=== PATIENT | female | born 1975 | race Caucasian/White ===

== ENCOUNTER 2022-10-09 09:58 | Emergency (ER) | payer OTHER, MEDICAID, SELFPAY ==
[2022-10-09] VITALS (17 sets, daily range): BP systolic 97–160; BP diastolic 52–89; PULSE 85–98; RESP 18; TEMP 36.2–37.2; O2SAT 93–100; BMI 25.0
--- NOTE | 2022-10-09 10:56 | PC.NURSE ---
pt continues to refuse iv attempt
[2022-10-09] MEDS: ONDANSETRON 4 MG ODT PO (10:59)
--- NOTE | 2022-10-09 11:25 | ED.NAVMDI ---
HPI - Nausea/Vomiting/Diarrhea General Chief complaint: Nausea/Vomiting/Diarrhea Stated complaint: vomiting, diarrhea Time Seen by Provider: 10/09/22 11:25 Source: patient Mode of arrival: Ambulatory Limitations: no limitations History of Present Illness HPI Narrative: This is a 46-year-old female who is insulin-dependent diabetic, on Lantus and Humulin, she also receives methadone at the local clinic and travels back and forth from [place] daily to receive her dose. Patient presents with complaint of vomiting via EMS. Glucose was high for them in the field. Patient arrived at the clinic, went straight to the bathroom was vomiting and never received her dose of methadone. She does not recall giving herself her own insulin but her significant other at bedside states that she gave herself her long-acting in a friend's car before they went to [facility]. Patient had hash browns and maybe some additional food at [facility] and then shortly thereafter started vomiting. They state that her glucoses have been reading high the last several days. Patient is not on any other daily medications. No reported fevers or chills, no cold cough or congestion. No chest pain or shortness of breath. Denies nausea or vomiting before today. Denies diarrhea or constipation before today denies dysuria urgency or frequency. Patient can converse with me but falls asleep easily. She has refused labs, IV or workup or any evaluation including respiratory swab multiple times with nursing when I evaluated her we discussed and she allowed for attempted IV access and blood work but persist in refusing nasal swab. They asked for her to receive her methadone dose but based on the level of sleepiness discussed that I am not comfortable with that at this time. No reported surgeries. Related Data Previous Rx's Medication Instructions Recorded cephalexin 500 mg capsule 500 mg PO Q12H #10 caps 10/09/22 lancets (Lancets,Ultra Thin) #100 ea 10/09/22 levothyroxine 75 mcg tablet 75 mcg PO DAILY #30 tabs 10/09/22 (Synthroid) ondansetron 4 mg disintegrating 4 mg PO QID PRN nausea and 10/09/22 tablet vomiting #5 tabs pen needle, diabetic 31 gauge x #100 ea 10/09/2210/21 (Lite Touch Insulin Pen [place]) Review of Systems Review of Systems ROS Unobtainable: All systems reviewed & are unremarkable except as noted in HPI and below Exam Narrative Exam Narrative: GEN: well nourished, female, alert and oriented but sleepy, with verbal stimuli patient will awakened answer questions but falls asleep easily, patient appears to be in mild distress. HEENT: Atraumatic, pupils are equal round reactive to light, extraocular movements are intact, nares are clear, there is no conjunctival pallor. Throat is clear without any exudates, erythema, tonsillar enlargement or uvular deviation HEART: Regular rate and rhythm without murmur, clicks, rubs. pulses are equal in upper and lower extremities patient does have 2+ edema bilateral lower extremities improved below the sock line. LUNGS:Lungs clear to auscultation, no wheezes, rales, crackles, chest moves symmetrically ABD:bowel sounds normal, soft, non-tender, no guarding, rebound, rigidity, no masses noted, no hepatosplenomegaly :No CVA tenderness MSCL: Non-tender, no muscle atrophy, muscles strength 5/5 upper and lower extremities, full range of motion NEURO:CN 2-12 intact, sensation normal, GCS 15 SKIN: Patient has some erythema at her sock line and extending above the the shins bilaterally lower pretibial area. No skin breakdown or open wounds noted. Initial Vital Signs Initial Vital Signs: Vital Signs Temperature 97.1 F L 10/09/22 10:03 Pulse Rate 94 H 10/09/22 10:03 Respiratory Rate 18 10/09/22 10:03 Blood Pressure 160/89 H 10/09/22 10:03 Pulse Oximetry 98 10/09/22 10:03 Oxygen Delivery Method 10/09/22 10:03 Course Orders Ordered: Discontinued Medications Sodium Chloride (Normal Saline 0.9%) 1,000 mls @ 1,000 mls/hr IV BOLUS ONE Stop: 10/09/22 12:37 Last Infusion: 10/09/22 13:48 Dose: 0 mls/hr Documented By: Admin: 10/09/22 12:25 Dose: 1,000 mls/hr Documented By: CONRADO Sodium Chloride (Normal Saline 0.9%) 1,000 mls @ 1,000 mls/hr IV BOLUS ONE Stop: 10/09/22 14:05 Last Infusion: 10/09/22 14:45 Dose: 0 mls/hr Documented By: Admin: 10/09/22 13:16 Dose: 1,000 mls/hr Documented By: CONRADO Ceftriaxone Sodium 1,000 mg/ (Sodium Chloride) 100 mls @ 200 mls/hr IV NOW ONE Stop: 10/09/22 13:33 Last Infusion: 10/09/22 14:09 Dose: 0 mls/hr Documented By: Admin: 10/09/22 13:36 Dose: 200 mls/hr Documented By: CONRADO Insulin Human Regular (Insulin Regular 100 Unit/Ml 3 Ml Vial) 10 unit IV NOW ONE Stop: 10/09/22 13:12 Last Admin: 10/09/22 13:15 Dose: 10 unit Documented By: CONRADO Co-signed By: AT Ondansetron HCl (Ondansetron 4 Mg Odt) 4 mg PO NOW PRN PRN Reason: Nausea And Vomiting Last Admin: 10/09/22 10:59 Dose: 4 mg Documented By: CONRADO(2) Ondansetron HCl (Ondansetron 4 Mg/2 Ml Inj) 4 mg IV NOW PRN PRN Reason: Nausea And Vomiting Last Admin: 10/09/22 13:15 Dose: 4 mg Documented By: CONRADO Vital Signs Vital signs: Vital Signs - 8 hr 10/09/22 10:03 10/09/22 10:05 10/09/22 10:05 Temperature 97.1 F L 97.1 F L Pulse Rate 94 H 95 H Respiratory Rate 18 Blood Pressure 160/89 H 160/89 H Pulse Oximetry 98 97 Oxygen Delivery Method Room Air 10/09/22 10:30 10/09/22 11:00 10/09/22 11:30 Temperature Pulse Rate 98 H 95 H 90 Respiratory Rate 18 Blood Pressure Pulse Oximetry 99 98 98 Oxygen Delivery Method 10/09/22 11:44 10/09/22 11:44 10/09/22 12:00 Temperature 99 F Pulse Rate 88 85 Respiratory Rate Blood Pressure 108/57 L Pulse Oximetry 96 99 Oxygen Delivery Method 10/09/22 12:01 10/09/22 12:01 10/09/22 12:30 Temperature Pulse Rate 85 Respiratory Rate Blood Pressure 106/63 101/66 Pulse Oximetry 100 Oxygen Delivery Method 10/09/22 12:30 10/09/22 13:00 10/09/22 13:30 Temperature Pulse Rate 91 H 85 91 H Respiratory Rate 18 Blood Pressure Pulse Oximetry 98 94 96 Oxygen Delivery Method 10/09/22 13:50 10/09/22 13:47 10/09/22 13:48 Temperature Pulse Rate 93 H 95 H Respiratory Rate Blood Pressure 97/54 L Pulse Oximetry 97 97 Oxygen Delivery Method 10/09/22 13:48 10/09/22 14:00 10/09/22 14:30 Temperature Pulse Rate 92 H 90 Respiratory Rate Blood Pressure 97/54 L Pulse Oximetry 97 93 Oxygen Delivery Method 10/09/22 14:35 10/09/22 14:35 Temperature Pulse Rate 91 H Respiratory Rate Blood Pressure 98/52 L Pulse Oximetry 93 Oxygen Delivery Method MDM - Nausea/Vomiting/Diarrhea Lab Data Result diagrams: 10/09/22 12:20 10/09/22 12:20 Labs: Lab Results 10/09/22 10/09/22 10/09/22 Range/Units 12:20 12:20 12:20 WBC 7.1 (4.5-11.0) X10^3/uL RBC 4.42 (4.0-5.2) X10^6/uL Hgb 13.4 (12.0-16.0) g/dL Hct 40.3 (36-46) % MCV 91.1 (80-100) fL MCH 30.4 (26-34) PG MCHC 33.4 (30-36) % RDW 13.8 (11.6-14.8) % Plt Count 303 (150-400) X10^3/uL Neut % (Auto) 76.0 H (50-75) % Lymph % (Auto) 14.3 L (25-40) % [place] % (Auto) 7.1 (3-14) % Eos % (Auto) 2.0 (2-4) % Baso % (Auto) 0.6 (0-2) % Neut # (Auto) 5400 (4333-9583) /uL Lymph # (Auto) 1000 L (8721-6500) /uL [place] # (Auto) 500 (0-900) /uL Eos # (Auto) 100 (0-450) /uL Baso # (Auto) 0 (0-100) /uL VBG pH (7.33-7.43) VBG pCO2 (45-50) mmHg VBG pO2 (35-45) mmHg VBG HCO3 (23-28) mmol/L VBG Total CO2 (24-29) mmol/L VBG O2 Saturation (70-75) % VBG Base Excess (0-4) mmol/L Sodium 134 L (137-145) mmol/L Potassium 3.8 (3.4-5.1) mmol/L Chloride 93 L (98-107) mmol/L Carbon Dioxide 31 (22-32) mmol/L BUN 16 (7-17) mg/dL Creatinine 0.71 (0.52-1.04) mg/dL Estimated GFR > 60 (>60) mL/min BUN/Creatinine Ratio 22.5 H (6-22) Glucose 483 H (70-100) mg/dL Lactate (0.7-2.1) mmol/L Calcium 8.6 (8.4-10.2) mg/dL Phosphorus 3.5 (2.5-4.5) mg/dL Magnesium 2.1 (1.6-2.3) mg/dL Total Bilirubin 0.5 (0.2-1.3) mg/dL AST 43 H (14-36) IU/L ALT 66 H (<35) IU/L Alkaline Phosphatase 130 H (38-126) U/L Total Creatine Kinase 125 (30-135) U/L CK-MB (CK-2) 3.13 H (<2.37) ng/mL CK-MB (CK-2) Rel Index 2.5 (1.5-5.0) % Troponin I < 0.012 (0.01-0.034) ng/mL NT-Pro-B Natriuret Pep 77 (<125) pg/mL Total Protein 7.0 (6.3-8.2) g/dL Albumin 3.7 (3.5-5.0) g/dL Globulin 3.3 (1.7-4.1) g/dL Albumin/Globulin Ratio 1.1 (1.0-2.8) Lipase 30 (23-300) U/L Procalcitonin 0.05 (<0.5) ng/mL Serum , Qual (Negative) Urine Color Urine Appearance Urine pH (4.5-8.0) Ur Specific [place] (1.000-1.035) Urine Protein (Negative) Urine Glucose (UA) (Negative) g/dL Urine Ketones (NEGATIVE) Urine Occult Blood (Negative) Urine Nitrate (Negative) Urine Bilirubin (NEGATIVE) Urine Urobilinogen (0.2) E.U./dL Ur Leukocyte Esterase (NEGATIVE) Urine RBC (0-5/HPF) Urine WBC (0-5/HPF) Ur Squamous Epith Cells (0-5/HPF) Amorphous Sediment Urine Bacteria (None) Ur Culture Indicated? U Opiates 300ng/mL cut (Negative) Ur Oxycodone Screen (Negative) Urine Methadone Screen (Negative) Ur Barbiturates Screen (Negative) U Tricyclic Antidepress (Negative) Ur Phencyclidine Scrn (Negative) Ur Amphetamines Screen (Negative) U Methamphetamines Scrn (Negative) Ur MDMA Scrn (Ecstasy) (Negative) U Benzodiazepines Scrn (Negative) Urine Cocaine Screen (Negative) U Marijuana (THC) Screen (Negative) 10/09/22 10/09/22 10/09/22 Range/Units 12:20 12:20 12:20 WBC (4.5-11.0) X10^3/uL RBC (4.0-5.2) X10^6/uL Hgb (12.0-16.0) g/dL Hct (36-46) % MCV (80-100) fL MCH (26-34) PG MCHC (30-36) % RDW (11.6-14.8) % Plt Count (150-400) X10^3/uL Neut % (Auto) (50-75) % Lymph % (Auto) (25-40) % [place] % (Auto) (3-14) % Eos % (Auto) (2-4) % Baso % (Auto) (0-2) % Neut # (Auto) (8418-4578) /uL Lymph # (Auto) (9578-3206) /uL [place] # (Auto) (0-900) /uL Eos # (Auto) (0-450) /uL Baso # (Auto) (0-100) /uL VBG pH (7.33-7.43) VBG pCO2 (45-50) mmHg VBG pO2 (35-45) mmHg VBG HCO3 (23-28) mmol/L VBG Total CO2 (24-29) mmol/L VBG O2 Saturation (70-75) % VBG Base Excess (0-4) mmol/L Sodium (137-145) mmol/L Potassium (3.4-5.1) mmol/L Chloride (98-107) mmol/L Carbon Dioxide (22-32) mmol/L BUN (7-17) mg/dL Creatinine (0.52-1.04) mg/dL Estimated GFR (>60) mL/min BUN/Creatinine Ratio (6-22) Glucose (70-100) mg/dL Lactate 1.9 (0.7-2.1) mmol/L Calcium (8.4-10.2) mg/dL Phosphorus (2.5-4.5) mg/dL Magnesium (1.6-2.3) mg/dL Total Bilirubin (0.2-1.3) mg/dL AST (14-36) IU/L ALT (<35) IU/L Alkaline Phosphatase (38-126) U/L Total Creatine Kinase (30-135) U/L CK-MB (CK-2) (<2.37) ng/mL CK-MB (CK-2) Rel Index (1.5-5.0) % Troponin I (0.01-0.034) ng/mL NT-Pro-B Natriuret Pep (<125) pg/mL Total Protein (6.3-8.2) g/dL Albumin (3.5-5.0) g/dL Globulin (1.7-4.1) g/dL Albumin/Globulin Ratio (1.0-2.8) Lipase Cancelled (23-300) U/L Procalcitonin (<0.5) ng/mL Serum , Qual Negative (Negative) Urine Color Urine Appearance Urine pH (4.5-8.0) Ur Specific [place] (1.000-1.035) Urine Protein (Negative) Urine Glucose (UA) (Negative) g/dL Urine Ketones (NEGATIVE) Urine Occult Blood (Negative) Urine Nitrate (Negative) Urine Bilirubin (NEGATIVE) Urine Urobilinogen (0.2) E.U./dL Ur Leukocyte Esterase (NEGATIVE) Urine RBC (0-5/HPF) Urine WBC (0-5/HPF) Ur Squamous Epith Cells (0-5/HPF) Amorphous Sediment Urine Bacteria (None) Ur Culture Indicated? U Opiates 300ng/mL cut (Negative) Ur Oxycodone Screen (Negative) Urine Methadone Screen (Negative) Ur Barbiturates Screen (Negative) U Tricyclic Antidepress (Negative) Ur Phencyclidine Scrn (Negative) Ur Amphetamines Screen (Negative) U Methamphetamines Scrn (Negative) Ur MDMA Scrn (Ecstasy) (Negative) U Benzodiazepines Scrn (Negative) Urine Cocaine Screen (Negative) U Marijuana (THC) Screen (Negative) 10/09/22 10/09/22 10/09/22 Range/Units 12:29 12:58 12:58 WBC (4.5-11.0) X10^3/uL RBC (4.0-5.2) X10^6/uL Hgb (12.0-16.0) g/dL Hct (36-46) % MCV (80-100) fL MCH (26-34) PG MCHC (30-36) % RDW (11.6-14.8) % Plt Count (150-400) X10^3/uL Neut % (Auto) (50-75) % Lymph % (Auto) (25-40) % [place] % (Auto) (3-14) % Eos % (Auto) (2-4) % Baso % (Auto) (0-2) % Neut # (Auto) (7244-2839) /uL Lymph # (Auto) (6289-4273) /uL [place] # (Auto) (0-900) /uL Eos # (Auto) (0-450) /uL Baso # (Auto) (0-100) /uL VBG pH 7.34 (7.33-7.43) VBG pCO2 59.6 H (45-50) mmHg VBG pO2 31 L (35-45) mmHg VBG HCO3 32 H (23-28) mmol/L VBG Total CO2 34 H (24-29) mmol/L VBG O2 Saturation 55 L (70-75) % VBG Base Excess 6.0 H (0-4) mmol/L Sodium (137-145) mmol/L Potassium (3.4-5.1) mmol/L Chloride (98-107) mmol/L Carbon Dioxide (22-32) mmol/L BUN (7-17) mg/dL Creatinine (0.52-1.04) mg/dL Estimated GFR (>60) mL/min BUN/Creatinine Ratio (6-22) Glucose (70-100) mg/dL Lactate (0.7-2.1) mmol/L Calcium (8.4-10.2) mg/dL Phosphorus (2.5-4.5) mg/dL Magnesium (1.6-2.3) mg/dL Total Bilirubin (0.2-1.3) mg/dL AST (14-36) IU/L ALT (<35) IU/L Alkaline Phosphatase (38-126) U/L Total Creatine Kinase (30-135) U/L CK-MB (CK-2) (<2.37) ng/mL CK-MB (CK-2) Rel Index (1.5-5.0) % Troponin I (0.01-0.034) ng/mL NT-Pro-B Natriuret Pep (<125) pg/mL Total Protein (6.3-8.2) g/dL Albumin (3.5-5.0) g/dL Globulin (1.7-4.1) g/dL Albumin/Globulin Ratio (1.0-2.8) Lipase (23-300) U/L Procalcitonin (<0.5) ng/mL Serum , Qual (Negative) Urine Color Yellow Urine Appearance Clear Urine pH 5.0 (4.5-8.0) Ur Specific [place] <=1.005 (1.000-1.035) Urine Protein Negative (Negative) Urine Glucose (UA) 2+ H (Negative) g/dL Urine Ketones Negative (NEGATIVE) Urine Occult Blood Negative (Negative) Urine Nitrate Negative (Negative) Urine Bilirubin Negative (NEGATIVE) Urine Urobilinogen 0.2 (0.2) E.U./dL Ur Leukocyte Esterase Negative (NEGATIVE) Urine RBC None seen (0-5/HPF) Urine WBC 1-5/hpf (0-5/HPF) Ur Squamous Epith Cells 1-5 /hpf (0-5/HPF) Amorphous Sediment 1+ Urine Bacteria Many (>30) H (None) Ur Culture Indicated? Specimen cultured U Opiates 300ng/mL cut Positive H (Negative) Ur Oxycodone Screen Negative (Negative) Urine Methadone Screen Positive H (Negative) Ur Barbiturates Screen Negative (Negative) U Tricyclic Antidepress Negative (Negative) Ur Phencyclidine Scrn Negative (Negative) Ur Amphetamines Screen Negative (Negative) U Methamphetamines Scrn Positive H (Negative) Ur MDMA Scrn (Ecstasy) Negative (Negative) U Benzodiazepines Scrn Negative (Negative) Urine Cocaine Screen Negative (Negative) U Marijuana (THC) Screen Negative (Negative) Point of Care Testing Glucose POC 150 Imaging Data Chest x-ray: Radiologist's Impression: Close Chest X-Ray (Signed) Brandan Hicks - 10/09/22 Launch?[address] [address] XRay Report Signed Patient: Laurie Hercules MR#: [id number] : 1975 Acct:[id number] Age/Sex: 46 / F Date of Service: 10/09/22 Loc: ED Accession Number: [id number] ?? Procedure: XR chest 1V Ordering Provider: Brittany Blunt D.O. PROCEDURE:? XR CHEST 1V ? INDICATIONS:? v/d, high blood sugars, swelling legs. ? TECHNIQUE:? One view of the chest was acquired.? ? COMPARISON:? None. ? FINDINGS:? ? Surgical changes and devices:? Postsurgical changes are noted in visualized lower cervical spine. ? Lungs and pleura:? Lungs are clear.? No pleural effusions or pneumothorax.? ? Mediastinum:? Mediastinal contours appear normal.? Heart size is normal.? ? Bones and chest wall:? No suspicious bony lesions.? Overlying soft tissues appear unremarkable.? ? IMPRESSION:? No acute cardiopulmonary pathology. ? ? Dictated by: Brandan Hicks M.D. on 10/09/2022 at 12:06 ? ? Approved by: Brandan Hicks M.D. on 10/09/2022 at 12:08?? ECG Data Interpretation: patient refused EKG. [facility] Narrative Medical decision making narrative: Patient with nausea and vomiting they suspect food poisoning discussed with patient she needs workup she refused EKG and nasal swab refused initially labs and additional workup but after discussed that with her hyperglycemia she can be in DKA and that can kill her she allowed for IV and lab work. Patient eventually allowed for line, had to have ultrasound guided placed line and has hyperglycemia no DKA. She has bacteria but no other signs of infection but will be covered with an antibiotic she has had [facility] before [facility] but [facility] Glucose improved from 400 range to 160 after 2 L of fluid and 10 units of insulin. Patient states she has plenty of it is she does request prescription refill for Synthroid, lancets and needles for insulin pen and sent with prescription for Keflex as well as Zofran. Patient did show urine that shows possible infection so will treat for possible UTI that may be exacerbating her sugars. She has improved her glucose in the department after fluids much more appropriate. Patient did ambulate to the bathroom here in the department after I saw her. She has not been having persistent vomiting. She stated to nursing that the methadone clinic had given her medications for the holiday weekend and she is happy and requesting to be discharged, they have already arranged transportation Discharge Plan Departure Patient Disposition: Home Clinical Impression: Hyperglycemia, UTI (urinary tract infection) Activity Restrictions/Additional Instructions: I hope you continue to feel better. You have bacteria in your urine but no other signs of infection, you have been given a dose of IV antibiotics and a prescription to continue, take Keflex 1 tablet twice daily for 5 days total. Your glucose is quite elevated today but you all of your other labs are appropriate. Prescription for your Synthroid, lancets and needles were sent to [facility] pharmacy on [address] in [place]. There is also a prescription for Zofran and antinausea medication included, he can take 1 tablet every 6 hours as needed. Please continue to monitor your sugars if they are still quite elevated you should be re-evaluated. Please return for fevers persistent vomiting, new or worsening abdominal back or flank pain, black or bloody stools, passing out or other new or concerning changes. Prescriptions: New levothyroxine [Synthroid] 75 mcg tablet 75 mcg PO DAILY Qty: 30 0RF (DME) lancets [Lancets,Ultra Thin] Misc See Rx Instructions .Route Qty: 100 0RF Rx Instructions: As directed (DME) pen needle, diabetic [Lite Touch Insulin Pen [place]] 31 gauge x 1/4 needle See Rx Instructions .Route Qty: 100 0RF Rx Instructions: As directed ondansetron 4 mg tablet,disintegrating 4 mg PO QID PRN (Reason: nausea and vomiting) Qty: 5 0RF cephalexin 500 mg capsule 500 mg PO Q12H Qty: 10 0RF Referrals: Miscellaneous,Doctor, MD [Primary Care Provider] - Visit Report Forms: Patient Portal/API
--- NOTE | 2022-10-09 11:38 | DI.RAD.S_ITS ---
PROCEDURE: XR CHEST 1V INDICATIONS: v/d, high blood sugars, swelling legs. TECHNIQUE: One view of the chest was acquired. COMPARISON: None. FINDINGS: Surgical changes and devices: Postsurgical changes are noted in visualized lower cervical spine. Lungs and pleura: Lungs are clear. No pleural effusions or pneumothorax. Mediastinum: Mediastinal contours appear normal. Heart size is normal. Bones and chest wall: No suspicious bony lesions. Overlying soft tissues appear unremarkable. IMPRESSION: No acute cardiopulmonary pathology. Dictated by: Brandan Hicks M.D. on 10/09/2022 at 12:06 Approved by: Brandan Hicks M.D. on 10/09/2022 at 12:08
--- NOTE | 2022-10-09 11:53 | PC.NURSE ---
piv attempt x 1 unsuccesful. called di rn for line with ultrasound
--- NOTE | 2022-10-09 11:56 | PC.NURSE ---
pt refuses resp arnp swab pt states no, you're not shoving that swab up my fucking nose
[2022-10-09] MEDS: SODIUM CHLORIDE 0.9% 1,000 ML 1000 ML IV ×2 (12:25→13:16)
[2022-10-09 12:33] LABS: Add Manual Diff / Slide Review NO; Basophils Absolute Auto 0 /uL (0-100); Basophils Percent Auto 0.6 % (0-2); Eosinophils Absolute Auto 100 /uL (0-450); Hematocrit 40.3 % (36-46); Hemoglobin 13.4 g/dL (12.0-16.0); Lymphocytes Absolute Auto 1000 /uL (1100-4500); Lymphocytes Percent Auto 14.3 % (25-40); Mean Corpuscular HGB Conc 33.4 % (30-36); Mean Corpuscular Hemoglobin 30.4 PG (26-34); Mean Corpuscular Volume 91.1 fL (80-100); Monocytes Absolute Auto 500 /uL (0-900); Monocytes Percent Auto 7.1 % (3-14); Neutrophils Absolute Auto 5400 /uL (1500-7000); Platelet Count 303 X10^3/uL (150-400); Red Blood Cell Count 4.42 X10^6/uL (4.0-5.2); Red Cell Distribution Width 13.8 % (11.6-14.8); White Blood Cell Count 7.1 X10^3/uL (4.5-11.0)
--- NOTE | 2022-10-09 12:40 | PC.NURSE ---
pt could not sit down or lay down right for ekg
[2022-10-09 12:46] LABS: Pregnancy Test Serum,Qual Negative (Negative)
[2022-10-09 12:49] LABS: Alanine Aminotransferase 66 IU/L (<35); Albumin 3.7 g/dL (3.5-5.0); Albumin Globulin Ratio 1.1 (1.0-2.8); Alkaline Phosphatase 130 U/L (38-126); Aspartate Aminotransferase 43 IU/L (14-36); BUN Creatinine Ratio 22.5 (6-22); Bilirubin Total 0.5 mg/dL (0.2-1.3); Blood Urea Nitrogen 16 mg/dL (7-17); Calcium 8.6 mg/dL (8.4-10.2); Carbon Dioxide 31 mmol/L (22-32); Chloride 93 mmol/L (98-107); Estimated Glomerular Filt Rate > 60 mL/min (>60); Globulin 3.3 g/dL (1.7-4.1); HEMOLYSIS < 15 (0-50); Lipase 30 U/L (23-300); Potassium 3.8 mmol/L (3.4-5.1); Sodium 134 mmol/L (137-145)
[2022-10-09 12:50] LABS: Creatine Kinase 125 U/L (30-135); Lactate (Lactic Acid) 1.9 mmol/L (0.7-2.1); Magnesium 2.1 mg/dL (1.6-2.3); Phosphorous 3.5 mg/dL (2.5-4.5)
[2022-10-09 12:58] LABS: Glucose 483 mg/dL (70-100)
[2022-10-09 13:01] LABS: NT-proBNP (BNP-Adult 18+) 77 pg/mL (<125); Troponin I < 0.012 ng/mL (0.01-0.034)
[2022-10-09 13:05] LABS: CKMB % Relative Index 2.5 % (1.5-5.0); Creatine Kinase MB 3.13 ng/mL (<2.37)
--- NOTE | 2022-10-09 13:05 | PC.NURSE ---
collected second set of blood cx from us iv, unable to obtain other line or blood.
[2022-10-09 13:06] LABS: Procalcitonin 0.05 ng/mL (<0.5)
[2022-10-09 13:14] LABS: Appearance Urine UA CLEAR; Bilirubin Urine UA NEGATIVE (NEGATIVE); Color Urine UA YELLOW; Glucose Urine UA 2+ g/dL (Negative); Ketones Urine UA NEGATIVE (NEGATIVE); Leukocyte Esterase Urine UA NEGATIVE (NEGATIVE); Nitrite Urine UA NEGATIVE (Negative); Occult Blood Urine UA NEGATIVE (Negative); Protein Urine UA NEGATIVE (Negative); Specific Gravity Urine UA <=1.005 (1.000-1.035); Urobilinogen Urine UA 0.2 E.U./dL (0.2)
[2022-10-09] MEDS: ONDANSETRON 4 MG/2 ML INJ IV (13:15)
[2022-10-09] MEDS: INSULIN REGULAR 100 UNIT/ML 3 ML VIAL 10 UNIT IV (13:15)
[2022-10-09 13:29] LABS: Amorphous Sediment Urine 1+; Bacteria Urine Many (>30); Culture Indicated Urine Specimen Cultured; RBC Urine None Seen (0-5/HPF); Squamous Epithelial Cell Urine 1-5 /HPF (0-5/HPF); WBC Urine 1-5/HPF (0-5/HPF)
[2022-10-09 13:30] LABS: HCO3 VBG 32 mmol/L (23-28); Oxygen Saturation VBG 55 % (70-75); PCO2 VBG 59.6 mmHg (45-50); PO2 VBG 31 mmHg (35-45); Total CO2 VBG 34 mmol/L (24-29); pH VBG 7.34 (7.33-7.43)
[2022-10-09 13:35] LABS: Ur Creatinine Normal (Normal); Ur Specific Gravity Normal (Normal); Urine Tetrahydrocannabinol Negative (Negative); Urine pH Normal (Normal)
[2022-10-09 13:36] LABS: UR Morphine/Opiate cutoff 300 Positive (Negative); Urine Amphetamines Negative (Negative); Urine Barbiturates Negative (Negative); Urine Benzodiazepines Negative (Negative); Urine Cocaine Negative (Negative); Urine MDMA Negative (Negative); Urine Methamphetamines Positive (Negative); Urine Phencyclidine Negative (Negative)
[2022-10-09] MEDS: cefTRIAXone 1,000 MG in SODIUM CHLORIDE 0.9% 100 ML 200 MG IV (13:36)
[2022-10-09 13:37] LABS: Urine Methadone Positive (Negative); Urine Oxycodone Negative (Negative); Urine Tricyclic Antidepressant Negative (Negative)
== END 2022-10-09 14:55 | disposition home or self-care (01) ==
PROVIDERS: Emergency Provider Emergency Medicine
DX: N39.0 Urinary tract infection, site not specified (principal); E11.65 Type 2 diabetes mellitus with hyperglycemia; Z79.4 Long term (current) use of insulin; R11.10 Vomiting, unspecified
CPT/HCPCS: 36415; 71045; 80053; 80305; 81001; 82550; 82553; 82805; 82962; 83605; 83690; 83735; 83880; 84100; 84145; 84484; 84703; 85025; 87040; 87077; 87086; 87186; 96361; 96365; 96375; 99284; J0696; J2405